=== PATIENT | female | born 1980 | race Caucasian/White ===

== ENCOUNTER 2016-09-24 17:13 | Emergency (ER) | payer SELFPAY ==
[~2016-09-24] VITALS: Ht 160 cm; Wt 73.3 kg
[~2016-09-24 17:13] MED LIST: CLB/200 PO; LISI-787 PO; TPM25 PO; TRAM-10 PO
[2016-09-24 17:34] VITALS: TEMP 37.3; Ht 160 cm; Wt 73.3 kg
[2016-09-24 19:02] LABS: BASO % 0.2 %; BASO ABS # 0.02 K/uL (0-0.2); COMPLETE YES; EOS % 5.2 %; HEMATOCRIT 40.5 % (37-47); IG% 0.3 %; LYMPH ABS # 3.29 K/uL (1.2-3.4); MEAN CELL VOLUME 92.3 fL (80-100); MEAN CORPUSCULAR HEMOGLOBIN 31.9 pg (25-34); MEAN CORPUSCULAR HGB CONC 34.6 g/dl (32-36); MEAN PLATELET VOLUME 9.2 fL (7.4-10.4); MONO % 8.3 %; PLATELET COUNT 305 K/uL (130-400); RED BLOOD COUNT 4.39 M/uL (4.2-5.4); WHITE BLOOD COUNT 12.66 K/uL (4.8-10.8)
--- NOTE | 2016-09-24 19:20 | DIAGNOSTIC IMAGING REPORT ---
HEAD CT NONCONTRAST CT DOSE: 537.48 mGy.cm HISTORY: Mental status change Evaluate for hemorrhage or pathology TECHNIQUE: Multiaxial CT images of the head were performed without the use of intravenous contrast. Comparison: None. Findings: Moderate mucosal thickening ethmoid sinuses. Opacified left frontal sinus. Mastoid air cells are clear. The calvarium and skull base are intact. The ventricles and sulci are within normal limits. There is no mass, hematoma, midline shift, or acute infarct. Impression: No acute intracranial abnormality. Moderate frontal and ethmoid chronic sinus change Electronically signed by: Alek Montgomery M.D. 09/24/2016 7:18 PM
[2016-09-24 19:24] LABS: CALCIUM 8.7 mg/dl (8.5-10.1); CREATININE 0.79 mg/dl (0.60-1.20); POTASSIUM 3.9 mmol/L (3.5-5.1)
[2016-09-24 21:01] LABS: LYME DISEASE AB IGG NEG (NEG); LYME DISEASE AB IGM NEG (NEG)
--- NOTE | 2016-09-24 21:09 | EMERGENCY ROOM VISIT NOTE ---
History Report prepared by Radha: Monik García Under the Supervision of: Dr. John Childers D.O. First contact with patient: 17:57 Chief Complaint: NEURO SYMPTOMS Stated Complaint: RT SIDE FROM CHIN TO FOREHEAD NUMBNESS Nursing Triage Summary: Patient c/o right side of face going numb x 2 weeks, symptoms intermettent. Chin up to forehead on right side. Some sharp pains in her head when it occurs, but not every time. Hx hypertension. states "I'm supposed to" take meds for hypertention. History of Present Illness The patient is a 36 year old female who presents to the Emergency Room with complaints of intermittent right facial numbness that began two weeks ago. She states that she experiences the numbness every other day. The patient states that she was sitting in the car when she first noticed the numbness two weeks ago. She additionally notes intermittent joint aches. The patient denies any difficulty swallowing, weakness in the arms or leg, visionary changes, recent fever, recent trauma, nausea, vomiting, or breathing difficulties. She states that she has a history of migraines and hypertension. The patient states that she did notice a tick on her over the summer and states that she was treated with one dose of Doxycycline. She states that she sees Dr. Russell, Neurology for her migraines. The patient notes a history of a hysterectomy. Source of History: patient Onset: two weeks ago Position: other (right facail) Quality: numbness Timing: intermittent Associated Symptoms: No SOB, No fevers, No nausea, No vomiting, No weakness Note: Associated Symptoms: joint aching Review of Systems See HPI for pertinent positives & negatives. A total of 10 systems reviewed and were otherwise negative. Past Medical & Surgical Medical Problems: (1) Acute abdominal pain (2) Acute abdominal pain (3) CA IN SITU CERVIX UTERI (4) ESOPHAGEAL REFLUX (5) HTN (hypertension) (6) IRRITABLE BOWEL SYNDROME (7) Migraine (8) MIGRAINE UNSPECIFIED W/O INTRACT MGRN W/O STATUS MIGRAINOSUS (9) Ovarian cyst, right (10) TOBACCO USE DISORDER (11) UTERINE LEIOMYOMA NOS Surgical Problems: (1) Hx of cholecystectomy (2) Hysterectomy Family History Cancer Diabetes mellitus Heart disease Hypertension Social History Smoking Status: Current Every Day Smoker Alcohol Use: occasionally Marital Status: single Occupation Status: employed Current/Historical Medications No Active Prescriptions or Reported Meds Allergies Coded Allergies: No Known Allergies (Verified , 09/24/16) Physical Exam Vital Signs Date Time Temp Pulse Resp B/P Pulse Ox O2 Delivery O2 Flow Rate FiO2 09/24/16 20:39 71 16 154/95 99 Room Air 09/24/16 17:34 37.3 82 16 188/110 99 Room Air Physical Exam VITAL SIGNS: were reviewed as above. GENERAL:Non-toxic in appearance. SKIN: Warm dry and pink. HEAD: Normocephalic and atraumatic. OROPHARYNX: Is clear and moist NECK: Supple without lymphadenopathy or meningismus. LUNGS: clear. HEART: Regular rate and rhythm. ABDOMEN: Soft and nontender. EXTREMITIES: Warm and well perfused. NEUROLOGICALLY: Awake alert and oriented without focal deficit. Cranial nerves 2 -12 are intact. There is no pronator drift. Cerebellar testing is within normal limits. There is no nystagmus. There is no facial droop. Speech is clear. Vision is grossly normal. MUSCULOSKELETAL: Good muscle tone. No evidence of trauma. Medical Decision & Procedures ER Provider Diagnostic Interpretation: CT results as stated below per my review and radiologist interpretation: HEAD CT NONCONTRAST CT DOSE: 537.48 mGy.cm HISTORY: Mental status change Evaluate for hemorrhage or pathology TECHNIQUE: Multiaxial CT images of the head were performed without the use of intravenous contrast. Comparison: None. Findings: Moderate mucosal thickening ethmoid sinuses. Opacified left frontal sinus. Mastoid air cells are clear. The calvarium and skull base are intact. The ventricles and sulci are within normal limits. There is no mass, hematoma, midline shift, or acute infarct. Impression: No acute intracranial abnormality. Moderate frontal and ethmoid chronic sinus change Electronically signed by: Alek Montgomery M.D. 09/24/2016 7:18 PM Laboratory Results 09/24/16 18:45 Red Blood Count 4.39, Mean Corpuscular Volume 92.3, Mean Corpuscular Hemoglobin 31.9, Mean Corpuscular Hemoglobin Concent 34.6, Mean Platelet Volume 9.2, Neutrophils (%) (Auto) 60.0, Lymphocytes (%) (Auto) 26.0, Monocytes (%) (Auto) 8.3, Eosinophils (%) (Auto) 5.2, Basophils (%) (Auto) 0.2, Neutrophils # (Auto) 7.60, Lymphocytes # (Auto) 3.29, Monocytes # (Auto) 1.05, Eosinophils # (Auto) 0.66, Basophils # (Auto) 0.02 09/24/16 18:45 Test 09/24/16 18:45 White Blood Count 12.66 K/uL (4.8-10.8) Red Blood Count 4.39 M/uL (4.2-5.4) Hemoglobin 14.0 g/dL (12.0-16.0) Hematocrit 40.5 % (37-47) Mean Corpuscular Volume 92.3 fL (80-100) Mean Corpuscular Hemoglobin 31.9 pg (25-34) Mean Corpuscular Hemoglobin Concent 34.6 g/dl (32-36) Platelet Count 305 K/uL (130-400) Mean Platelet Volume 9.2 fL (7.4-10.4) Neutrophils (%) (Auto) 60.0 % Lymphocytes (%) (Auto) 26.0 % Monocytes (%) (Auto) 8.3 % Eosinophils (%) (Auto) 5.2 % Basophils (%) (Auto) 0.2 % Neutrophils # (Auto) 7.60 K/uL (1.4-6.5) Lymphocytes # (Auto) 3.29 K/uL (1.2-3.4) Monocytes # (Auto) 1.05 K/uL (0.11-0.59) Eosinophils # (Auto) 0.66 K/uL (0-0.5) Basophils # (Auto) 0.02 K/uL (0-0.2) RDW Standard Deviation 44.8 fL (36.4-46.3) RDW Coefficient of Variation 13.2 % (11.5-14.5) Immature Granulocyte % (Auto) 0.3 % Immature Granulocyte # (Auto) 0.04 K/uL (0.00-0.02) Erythrocyte Sedimentation Rate 20 mm/hr (0-21) Anion Gap 8.0 mmol/L (3-11) Est Creatinine Clear Calc Drug Dose 93.5 ml/min Estimated GFR () 110.8 Estimated GFR (Non- 95.6 BUN/Creatinine Ratio 9.0 (10-20) Calcium Level 8.7 mg/dl (8.5-10.1) Lyme Disease IgG Antibody NEG (NEG) Lyme Disease IgM Antibody NEG (NEG) Laboratory results as stated above per my review. ED Course 1839: Previous medical records were reviewed. The patient was evaluated in room C2B. A complete history and physical examination was performed. 2108: I reevaluated the patient and she is resting comfortably. I discussed the exam findings with her and I discussed the treatment plan. She verbalized complete understanding and agreement. She is ready to go home. Medical Decision Differential diagnosis includes [place] Palsy, Lyme disease, intracranial process , MS. This is a 36-year-old female who presents to the ED with a chief complaint of right facial weakness. The patient states that she has intermittently been having right facial weakness for the past 2 weeks. She states that it happens about every other day. She states that yesterday she was feeling fine. Today her right face feels numb as if she received Novocain. The patient does have a history of hypertension. Her blood pressure was 188/110. She denies any other symptoms associated with her numbness. She did report a little achiness. She does have history of a tick exposure earlier in the year. The patient states that she did have 1 dose of doxycycline for this tick exposure. She denies any focal weakness. She denies any diplopia, difficulty swallowing or difficulty speaking. She is not having any fevers or chills or recent illness. Denies any trauma. Neurological exam was completely normal including sensation of the face. CT scan of the brain did not show any acute process. Blood work was unremarkable. Sedimentation rate was normal. Lyme test was negative. The patient was told results the test. She is felt to be stable for discharge and outpatient follow-up. Impression Primary Impression: Facial paresthesia Scribe Attestation The scribe's documentation has been prepared under my direction and personally reviewed by me in its entirety. I confirm that the note above accurately reflects all work, treatment, procedures, and medical decision making performed by me. Departure Information Dispostion Home / Self-Care Prescriptions No Active Prescriptions or Reported Meds Referrals Brandon Martinez M.D.([facility]) (PCP) Forms HOME CARE DOCUMENTATION FORM, IMPORTANT VISIT INFORMATION, WORK / SCHOOL INSTRUCTIONS Patient Instructions A Signature Page, My [facility] Additional Instructions Follow-up with your neurologist for further assessment of her symptoms. CAT scan of your head and Lyme test were normal today. Blood work was normal. Follow-up with your doctor for further care and evaluation in 1-2 days. Return to the emergency department for worsening or new symptoms or any concerns. You have been examined and treated today on an emergency basis only. This is not a substitute for, or an effort to provide, complete comprehensive medical care. It is impossible to recognize and treat all injuries or illnesses in a single emergency department visit. It is therefore important that you follow up closely with your doctor. Call as soon as possible for an appointment.
[2016-09-24 21:22] VITALS: BP 148/92; PULSE 70; O2SAT 98
== END 2016-09-24 21:23 | disposition home or self-care (01) ==
LOC: C.EDB 17:15 → C.EDC 21:23
DX: R20.0 Anesthesia of skin (principal); I10 Essential (primary) hypertension; G43.909 Migraine, unspecified, not intractable, without status migrainosus; K58.9 Irritable bowel syndrome, unspecified; K21.9 Gastro-esophageal reflux disease without esophagitis; F17.210 Nicotine dependence, cigarettes, uncomplicated; Z80.9 Family history of malignant neoplasm, unspecified; Z83.3 Family history of diabetes mellitus; Z82.49 Family history of ischemic heart disease and other diseases of the circulatory system

== ENCOUNTER 2017-08-08 14:26 | Emergency (ER) | payer SELFPAY ==
[~2017-08-08] VITALS: Ht 160 cm; Wt 72.2 kg
[2017-08-08 14:37] VITALS: TEMP 37.3; Ht 160 cm; Wt 72.2 kg
[2017-08-08] MEDS ORDERED: ALBUT/IPRATROP 3MG/0.5MG NEB 3 ML VIAL INH STA (14:49)
--- NOTE | 2017-08-08 14:59 | EMERGENCY ROOM VISIT NOTE ---
History First contact with patient: 14:39 Chief Complaint: COUGH Stated Complaint: COUGH,LEG PAIN Nursing Triage Summary: triage note: Pt reports "i have had a nasty dry cough for about a month." pt reports shortness of breath. pt reports she has not gone to her pcp office. History of Present Illness The patient is a 37 year old female who presents to the Emergency Room via private vehicle accompanied by male female with complaints of "cough, right leg pain". The patient states that about one month ago she developed a dry cough which has been worsening. There is no production of sputum. She states that 1 week ago she also developed right-sided lateral leg pain. It radiates from her right great toe up to the right hip. There has been no injury. She does smoke one pack per day of cigarettes. There is anterior chest pain associated with her cough and leg pain. She is a history of high blood pressure. She states that if she lays flat the pain is worse in the chest and it is heavy in the chest. There is no wheezing. She denies any personal history of blood clots or heart problems. Review of Systems A complete 6-point Review of Systems was discussed with the patient, with pertinent positives and negatives listed in the History of Present Illness. All remaining Review of Systems questions can be considered negative unless otherwise specified. Past Medical/Surgical History Medical Problems: (1) Acute abdominal pain (2) Acute abdominal pain (3) CA IN SITU CERVIX UTERI (4) ESOPHAGEAL REFLUX (5) HTN (hypertension) (6) IRRITABLE BOWEL SYNDROME (7) Migraine (8) MIGRAINE UNSPECIFIED W/O INTRACT MGRN W/O STATUS MIGRAINOSUS (9) Ovarian cyst, right (10) TOBACCO USE DISORDER (11) UTERINE LEIOMYOMA NOS Surgical Problems: (1) Hx of cholecystectomy (2) Hysterectomy Family History Cancer Diabetes mellitus Heart disease Hypertension Social History Smoking Status: Current Every Day Smoker Alcohol Use: occasionally Marital Status: single Occupation Status: employed Current/Historical Medications Scheduled Prednisone (Prednisone Tab), 2 TAB PO DAILY [Blood Pressure Rx], 1 TAB PO DAILY Scheduled PRN Albuterol Hfa (Ventolin Hfa), 1-2 PUFFS INH Q6H PRN for SOB/Wheezing Physical Exam Vital Signs Date Time Temp Pulse Resp B/P (MAP) Pulse Ox O2 Delivery O2 Flow Rate FiO2 08/08/17 16:51 87 18 137/85 97 08/08/17 15:17 90 18 155/103 97 Room Air 08/08/17 15:08 111 08/08/17 15:01 98 Room Air 08/08/17 14:37 37.3 106 22 167/111 98 Room Air Physical Exam VITAL SIGNS - Vital signs and nursing notes were reviewed. Tachycardic. GENERAL - 37-year-old female appearing her stated age who is in no acute distress. Communicates well with provider and answers questions appropriately. SKIN - Without rashes. HEAD - NC/AT. EYES - PERRL with EOMI bilaterally. Sclera anicteric. EARS - No deformities of external structures noted on gross examination bilaterally. No pain elicited with palpation of the tragus bilaterally. External auditory canals without discharge or otorrhea. Tympanic membranes pearly calle without retraction or bulging. No fluid or purulent material visualized behind the TM. Handle of malleus, umbo, cone of light, pars tensa/ flaccid all easily visualized. NOSE - Midline and without cyanosis. No epistaxis or purulent drainage noted. Septum midline without deviation or septal hematoma noted. MOUTH/OROPHARYNX - Without perioral cyanosis. Buccal mucosa pink and moist and without leukoplakia. Tongue midline with equal elevation of palate bilaterally. No tonsillar hypertrophy, erythema, or exudates noted. Fair dentition noted. NECK - Neck with FROM. LUNGS - Chest wall symmetric without accessory muscle use, intercostals retractions, or central cyanosis. L sided expiratory wheezing. CARDIAC - RRR with S1/S2. No murmur, rubs, or gallops appreciated. EXTREMITIES - No clubbing or peripheral cyanosis. No pretibial edema present.R lateral leg pain not reproduced on exam. +5/5 strength noted in UE/LE bilaterally. NEUROLOGIC - Cranial nerves II through XII grossly intact. Patellar reflexes +2 /4. PSYCH - A&O, and cooperates fully with examiner. Pt is very pleasant and interacts well with examiner. Medical Decision & Procedures ER Provider Diagnostic Interpretation: ULTRASOUND R VENOUS DOPP LOWER EXT UNILAT CLINICAL HISTORY: Right leg pain. Shortness of breath. COMPARISON STUDY: No previous studies for comparison. FINDINGS: Real-time and color flow Doppler imaging were performed. Flow was seen within the femoral, popliteal and calf veins with no intraluminal thrombus demonstrated. The saphenous vein is patent. IMPRESSION: No evidence of right lower extremity DVT. Electronically signed by: Sandro Reese M.D. 08/08/2017 3:53 PM Dictated Date/Time: 08/08/2017 3:52 PM CHEST ONE VIEW PORTABLE CLINICAL HISTORY: Shortness of breath. Right leg pain. COMPARISON STUDY: 01/06/2012 FINDINGS: The cardiac and mediastinal contours are normal. There is no evidence of focal pulmonary consolidation. There is no evidence of failure. No pleural effusions are visualized.[ IMPRESSION: No active disease in the chest. Electronically signed by: Sandro Reese M.D. 08/08/2017 3:08 PM Dictated Date/Time: 08/08/2017 3:08 PM Laboratory Results 08/08/17 14:56 Red Blood Count 4.65, Mean Corpuscular Volume 93.5, Mean Corpuscular Hemoglobin 31.8, Mean Corpuscular Hemoglobin Concent 34.0, Mean Platelet Volume 9.1, Neutrophils (%) (Auto) 64.3, Lymphocytes (%) (Auto) 25.8, Monocytes (%) (Auto) 6.4, Eosinophils (%) (Auto) 3.0, Basophils (%) (Auto) 0.2, Neutrophils # (Auto) 8.08, Lymphocytes # (Auto) 3.25, Monocytes # (Auto) 0.80, Eosinophils # (Auto) 0.38, Basophils # (Auto) 0.03 08/08/17 14:56 Test 08/08/17 14:56 08/08/17 15:01 White Blood Count 12.58 K/uL (4.8-10.8) Red Blood Count 4.65 M/uL (4.2-5.4) Hemoglobin 14.8 g/dL (12.0-16.0) Hematocrit 43.5 % (37-47) Mean Corpuscular Volume 93.5 fL (80-100) Mean Corpuscular Hemoglobin 31.8 pg (25-34) Mean Corpuscular Hemoglobin Concent 34.0 g/dl (32-36) Platelet Count 339 K/uL (130-400) Mean Platelet Volume 9.1 fL (7.4-10.4) Neutrophils (%) (Auto) 64.3 % Lymphocytes (%) (Auto) 25.8 % Monocytes (%) (Auto) 6.4 % Eosinophils (%) (Auto) 3.0 % Basophils (%) (Auto) 0.2 % Neutrophils # (Auto) 8.08 K/uL (1.4-6.5) Lymphocytes # (Auto) 3.25 K/uL (1.2-3.4) Monocytes # (Auto) 0.80 K/uL (0.11-0.59) Eosinophils # (Auto) 0.38 K/uL (0-0.5) Basophils # (Auto) 0.03 K/uL (0-0.2) RDW Standard Deviation 46.0 fL (36.4-46.3) RDW Coefficient of Variation 13.5 % (11.5-14.5) Immature Granulocyte % (Auto) 0.3 % Immature Granulocyte # (Auto) 0.04 K/uL (0.00-0.02) Prothrombin Time 10.0 SECONDS (9.0-12.0) Prothromb Time International Ratio 0.9 (0.9-1.1) Activated Partial Thromboplast Time 28.2 SECONDS (21.0-31.0) Partial Thromboplastin Ratio 1.1 Anion Gap 8.0 mmol/L (3-11) Est Creatinine Clear Calc Drug Dose 83.5 ml/min Estimated GFR () 97.9 Estimated GFR (Non- 84.5 BUN/Creatinine Ratio 11.8 (10-20) Calcium Level 9.1 mg/dl (8.5-10.1) Magnesium Level 2.3 mg/dl (1.8-2.4) Total Bilirubin 0.3 mg/dl (0.2-1) Aspartate Amino Transf (AST/SGOT) 18 U/L (15-37) Alanine Aminotransferase (ALT/SGPT) 28 U/L (12-78) Alkaline Phosphatase 89 U/L (45-117) Troponin I < 0.015 ng/ml (0-0.045) Pro-B-Type Natriuretic Peptide 16 pg/ml (0-450) Total Protein 8.1 gm/dl (6.4-8.2) Albumin 3.9 gm/dl (3.4-5.0) Globulin 4.2 gm/dl (2.5-4.0) Albumin/Globulin Ratio 0.9 (0.9-2) Thyroid Stimulating Hormone (TSH) 0.852 uIu/ml (0.300-4.500) Bedside D-Dimer 351 ng/mlFEU (0-450) Bedside Troponin I < 0.030 ng/ml (0-0.045) Medications Administered Medications (Trade) Dose Ordered Sig/Suzie Route Start Time Stop Time Status Last Admin Dose Admin Albuterol/ Ipratropium (Duoneb) 3 ml NOW STAT INH 08/08/17 14:49 08/08/17 14:51 DC 08/08/17 14:56 3 ML Prednisone (PredniSONE TAB) 40 mg NOW STAT PO 08/08/17 16:21 08/08/17 16:23 DC 08/08/17 16:50 40 MG Albuterol (Ventolin Hfa Inhaler) 2 puffs NOW STAT INH 08/08/17 16:21 08/08/17 16:23 DC 08/08/17 16:50 2 PUFFS Medical Decision Patient was seen and evaluated as above. She presents with today with chest pain, cough and right-sided leg pain. Initially differentials entertain were WI , PE, bronchitis, pneumonia, peritonitis, pleural effusion, mass, among others. That EKG was obtained and reveals normal sinus rhythm. There is no ectopy or ischemic change. No evidence of PE or WI. Chest x-ray results as above and found to be negative. These were also reviewed by myself. The patient was given a DuoNeb without relief but she is conversing well in the room. Her symptoms are worse when on the cold and walking. I suspect she likely has bronchitis. There is slight leukocytosis of 12.58. No anemia. D-dimer normal. Patient coags normal. Patient metabolic panel reveals no evidence of kidney or liver failure. Troponin negative. BNP normal. TSH within normal limits. Ultrasound negative for DVT. I suspect she likely is experiencing some radicular pain down the right side and the leg. She'll be treated with an albuterol inhaler as well as prednisone. She was educated upon management, educated upon worrisome symptoms which to return, had questions prior to discharge, and was discharged home in good condition. In evaluation treatment this patient the following differential diagnoses were obtained: WI, PE, DVT, bronchitis, pneumonia, among others. Impression Primary Impression: Cough Additional Impressions: Acute bronchitis Leg pain Departure Information Dispostion Home / Self-Care Condition GOOD Prescriptions Albuterol Hfa (VENTOLIN HFA) 200 Puffs/07333 Mcg Aers 1-2 PUFFS INH Q6H Y for SOB/Wheezing, #1 INHALER Prov: Homer Bardales PA-C 08/08/17 Prednisone (Prednisone Tab) 20 Mg Tab 2 TAB PO DAILY for 5 Days, #10 TAB Prov: Homer Bardales PA-C 08/08/17 Referrals Brandon Martinez M.D. ([facility]) (PCP) Patient Instructions My [facility] Additional Instructions You were seen in the emergency department for bronchitis. Please use the albuterol inhaler 1-2 puffs every 4-6 hours as needed for your cough. Please take the prednisone. You have been prescribed Prednisone 40 mg to be taken orally once a day for the next 6 days. You were given the first dose here. Please take this again tomorrow evening. This is an anti-inflammatory medicine to be used to help minimize your symptoms. You should take the COMPLETE course of the medication. Please schedule follow-up with her family doctor regarding your visit here today. Please return with any new/concerning symptoms. Problem Qualifiers
[2017-08-08 15:01] VITALS: O2SAT 98
[2017-08-08 15:08] LABS: BASO % 0.2 %; BASO ABS # 0.03 K/uL (0-0.2); COMPLETE YES; HEMATOCRIT 43.5 % (37-47); IG% 0.3 %; LYMPH % 25.8 %; LYMPH ABS # 3.25 K/uL (1.2-3.4); MEAN CELL VOLUME 93.5 fL (80-100); MEAN CORPUSCULAR HEMOGLOBIN 31.8 pg (25-34); MEAN PLATELET VOLUME 9.1 fL (7.4-10.4); MONO % 6.4 %; NEUT % 64.3 %; PLATELET COUNT 339 K/uL (130-400); RED BLOOD COUNT 4.65 M/uL (4.2-5.4); WHITE BLOOD COUNT 12.58 K/uL (4.8-10.8)
--- NOTE | 2017-08-08 15:10 | DIAGNOSTIC IMAGING REPORT ---
CHEST ONE VIEW PORTABLE CLINICAL HISTORY: Shortness of breath. Right leg pain. COMPARISON STUDY: 01/06/2012 FINDINGS: The cardiac and mediastinal contours are normal. There is no evidence of focal pulmonary consolidation. There is no evidence of failure. No pleural effusions are visualized.[ IMPRESSION: No active disease in the chest. Electronically signed by: Sandro Reese M.D. 08/08/2017 3:08 PM Dictated Date/Time: 08/08/2017 3:08 PM
[2017-08-08 15:19] LABS: INR 0.9 (0.9-1.1); PARTIAL THROMBOPLASTIN RATIO 1.1
[2017-08-08 15:20] LABS: POINT OF CARE TROPONIN I < 0.030 ng/ml (0-0.045)
[2017-08-08 15:27] LABS: ALT/SGPT 28 U/L (12-78); BLOOD UREA NITROGEN 10 mg/dl (7-18); BUN/CREATININE RATIO 11.8 (10-20); CALCIUM 9.1 mg/dl (8.5-10.1); CARBON DIOXIDE 29 mmol/L (21-32); CHLORIDE 102 mmol/L (98-107); CREATININE 0.87 mg/dl (0.60-1.20); GLUCOSE 108 mg/dl (70-99); MAGNESIUM 2.3 mg/dl (1.8-2.4); POTASSIUM 3.8 mmol/L (3.5-5.1); SODIUM 139 mmol/L (136-145)
[2017-08-08 15:29] LABS: ALB/GLOB RATIO 0.9 (0.9-2); AST/SGOT 18 U/L (15-37)
[2017-08-08 15:40] LABS: ALKALINE PHOSPHATASE 89 U/L (45-117); THYROID STIMULATING HORMONE 0.852 uIu/ml (0.300-4.500)
--- NOTE | 2017-08-08 15:54 | DIAGNOSTIC IMAGING REPORT ---
ULTRASOUND R VENOUS DOPP LOWER EXT UNILAT CLINICAL HISTORY: Right leg pain. Shortness of breath. COMPARISON STUDY: No previous studies for comparison. FINDINGS: Real-time and color flow Doppler imaging were performed. Flow was seen within the femoral, popliteal and calf veins with no intraluminal thrombus demonstrated. The saphenous vein is patent. IMPRESSION: No evidence of right lower extremity DVT. Electronically signed by: Sandro Reese M.D. 08/08/2017 3:53 PM Dictated Date/Time: 08/08/2017 3:52 PM
[2017-08-08] MEDS ORDERED: BLOOD PRESSURE RX PO (16:12)
[2017-08-08] MEDS ORDERED: ALBUTEROL HFA 8 GM INHALER INH STA (16:21)
[2017-08-08] MEDS ORDERED: VNTHFA/IN INH (16:29)
[2017-08-08] MEDS ORDERED: PRED20TA2 PO (16:29)
[2017-08-08 16:51] VITALS: BP 137/85; PULSE 87; O2SAT 97
== END 2017-08-08 16:52 | disposition home or self-care (01) ==
LOC: C.EDB 14:28 → C.EDC 16:52
DX: R05 Cough (principal); J20.9 Acute bronchitis, unspecified; M79.604 Pain in right leg; I10 Essential (primary) hypertension; F17.210 Nicotine dependence, cigarettes, uncomplicated; K21.9 Gastro-esophageal reflux disease without esophagitis; G43.909 Migraine, unspecified, not intractable, without status migrainosus; K58.9 Irritable bowel syndrome, unspecified; N83.201 Unspecified ovarian cyst, right side; Z85.41 Personal history of malignant neoplasm of cervix uteri; Z90.710 Acquired absence of both cervix and uterus; Z83.3 Family history of diabetes mellitus; Z82.49 Family history of ischemic heart disease and other diseases of the circulatory system